=== PATIENT | female | born 1950 | race Caucasian/White ===

== ENCOUNTER → 2017-10-03 | Outpatient (CLI) | payer OTHER | END | disposition home or self-care (01) | LOC: CFH 09:28 | DX: Z13.820 Encounter for screening for osteoporosis (principal); Z12.2 Encounter for screening for malignant neoplasm of respiratory organs; M85.88 Other specified disorders of bone density and structure, other site; N95.9 Unspecified menopausal and perimenopausal disorder; F17.210 Nicotine dependence, cigarettes, uncomplicated | CPT/HCPCS: 77080; G0297 ==

== ENCOUNTER 2020-07-02 03:28 | Emergency (ER) | payer MEDICARE ==
[~2020-07-02] VITALS: Ht 165.1 cm; Wt 79.8 kg
[2020-07-02 03:34] VITALS: BP 178/76
--- NOTE | 2020-07-02 03:39 | NUR ---
MANAGER CODE: EKG PERFORMED IN TRIAGE AT THIS TIME.
== END 2020-07-02 05:54 | disposition home or self-care (01) ==
LOC: ED 05:30
DX: J02.8 Acute pharyngitis due to other specified organisms (principal); B97.89 Other viral agents as the cause of diseases classified elsewhere; R05 Cough; R09.81 Nasal congestion; I10 Essential (primary) hypertension; J44.9 Chronic obstructive pulmonary disease, unspecified
CPT/HCPCS: 93005; 99283

== ENCOUNTER 2020-07-19 11:32 | Emergency (ER) | payer MEDICARE ==
[~2020-07-19] VITALS: Ht 165.1 cm; Wt 77.9 kg
--- NOTE | 2020-07-19 11:57 | NUR ---
PT COMES IN C/O LEFT CHEST PAIN THAT STARTED LAST NIGHT. STATES THAT THE PAIN RADIATES TO LEFT ARM, LEFT SIDED FACIAL NUMBNESS, SOB, ALSO C/O HARDWICK. STATES IT COMES AND GOES. PT ANXIOUS. MONITORS CONNECTED. ACCOMPANIED BY FRIEND. WARM BLANKET PROVIDED.
--- NOTE | 2020-07-19 12:02 | NUR ---
AT BEDSIDE FOR ASSESSMENT
[2020-07-19] MEDS ORDERED: ASPIRIN 81 MG TABLET CHEW ONE (12:11)
--- NOTE | 2020-07-19 12:13 | NUR ---
XRAY AT BEDSIDE, ASPIRIN ADMINISTERED
[2020-07-19 12:19] LABS: BASOPHILS % (AUTO) 1 % (0-1); EOSINOPHILS % (AUTO) 2 % (1-7); LYMPHOCYTES % (AUTO) 47 % (22-44); MEAN CORPUSCULAR HEMOGLOBIN 34.2 pg (27.0-34.8); MEAN PLATELET VOLUME 8.2 fL (7.4-10.4); MONOCYTES % (AUTO) 9 % (2-9); NEUTROPHILS % (AUTO) 42 % (42-75); PLATELET COUNT 227 x10^3/uL (130-400); RED CELL DISTRIBUTION WIDTH 13.3 % (9.6-15.2)
[2020-07-19 12:24] LABS: MD NO
[2020-07-19] MEDS ORDERED: SODIUM CHLORIDE FLUSH 10ML SYR IVF ONE (12:30)
[2020-07-19] MEDS ORDERED: ASPIRIN 81 MG TABLET CHEW PO ONE (12:30)
[2020-07-19 12:32] LABS: ALANINE AMINOTRANSFERASE 29 U/L (12-78); ALBUMIN 4.2 g/dL (3.4-5.0); ANION GAP 4 mmol/L (5-15); CALCIUM 9.1 mg/dL (8.5-10.1); CHLORIDE 112 mmol/L (98-107); CREATININE 0.94 mg/dL (0.55-1.02)
[2020-07-19 12:37] LABS: ALKALINE PHOSPHATASE 87 U/L (45-117); BILIRUBIN,TOTAL 0.4 mg/dL (0.2-1.0); TOTAL PROTEIN 7.8 g/dL (6.4-8.2); TROPONIN I < 0.015 ng/mL (0.000-0.045)
--- NOTE | 2020-07-19 13:15 | NUR ---
PT RESTING ON GURAMI. VSS. NAD. C/O 09/08 CHEST PAIN. DENIES NEED FOR PAIN MEDICATION INTERVENTION AT THIS TIME. WILL CONTINUE TO MONITOR
--- NOTE | 2020-07-19 14:21 | NUR ---
CT WAITING FOR IV ACCESS
[2020-07-19 14:32] VITALS: BP 112/57
--- NOTE | 2020-07-19 14:33 | NUR ---
IV RESTARTED. CT NOTIFIED.
[2020-07-19] MEDS ORDERED: OMNIPAQUE 350 MG/ML, 100ML BOTTLE ONE (15:01)
== END 2020-07-19 16:07 | disposition home or self-care (01) ==
LOC: ED 11:52
DX: R07.9 Chest pain, unspecified (principal); J44.9 Chronic obstructive pulmonary disease, unspecified; R00.0 Tachycardia, unspecified; I10 Essential (primary) hypertension; F17.200 Nicotine dependence, unspecified, uncomplicated; Z90.49 Acquired absence of other specified parts of digestive tract; Z90.710 Acquired absence of both cervix and uterus
CPT/HCPCS: 36415; 71045; 71275; 80053; 83690; 83880; 84484; 85025; 93005; 99285; Q9967

== ENCOUNTER → 2020-10-22 | Outpatient (CLI) | payer MEDICARE | END | disposition home or self-care (01) | LOC: CFH 10:11 | DX: Z12.2 Encounter for screening for malignant neoplasm of respiratory organs (principal); R91.1 Solitary pulmonary nodule; F17.210 Nicotine dependence, cigarettes, uncomplicated | CPT/HCPCS: 71271 ==

== ENCOUNTER → 2020-11-25 | Outpatient (CLI) | payer MEDICARE ==
[~2020-11-25] MED LIST: REGADENOSON 0.4 MG/5 ML SYRINGE ONE
== END | disposition home or self-care (01) ==
LOC: CFH 08:19
PROVIDERS: ATTEND Internal Medicine Cardiovascular Disease
DX: I35.8 Other nonrheumatic aortic valve disorders (principal); I11.9 Hypertensive heart disease without heart failure; R94.31 Abnormal electrocardiogram [ECG] [EKG]; R06.02 Shortness of breath; R07.89 Other chest pain
CPT/HCPCS: 78452; 93017; 93306; A9502; J2785